=== PATIENT | female | born 1995 | race Caucasian/White ===

== ENCOUNTER 2024-03-05 19:10 | Emergency (ER) | payer SELFPAY ==
[2024-03-05 19:21] VITALS: BP 136/79; PULSE 78; RESP 18; TEMP 97.8; BMI 48.8
[2024-03-05] MEDS ORDERED: IBUPROFEN 400 MG TABLET (FP) PO ONE (19:48)
[2024-03-05] MEDS ORDERED: ACETAMINOPHEN 500 MG TABLET (FP) ONE (19:49)
[2024-03-05] MEDS: IBUPROFEN 400 MG TABLET (FP) PO ONE (19:56)
[2024-03-05] MEDS: ACETAMINOPHEN 500 MG TABLET (FP) PO ONE (19:57)
== END 2024-03-05 20:11 | disposition home or self-care (01) ==
LOC: JERFT 19:10
DX: S93.492A Sprain of other ligament of left ankle, initial encounter (principal); X50.1XXA Overexertion from prolonged static or awkward postures, initial encounter; Y93.01 Activity, walking, marching and hiking
CPT/HCPCS: 73610-TC-LT-FY; 99283-25